=== PATIENT | female | born 1955 | race Caucasian/White ===

== ENCOUNTER 2022-09-21 21:53 | Emergency (ER) | payer MEDICARE, OTHER ==
[2022-09-21 22:09] VITALS: TEMP 98.8
[2022-09-21] MEDS ORDERED: solu-MEDROL 125 MG, Sterile H2O 10 ml 2 ML IV ONE ×2 (22:19)
[2022-09-21] MEDS ORDERED: DUONEB 0.5-3 MG/3 ml Neb IH ONE ×2 (22:19→22:35)
[2022-09-21] MEDS ORDERED: GI COCKTAIL 45 ML (Maalox/Lidocaine) PO ONE (22:20)
[2022-09-21] MEDS ORDERED: BABY ASPIRIN 81 MG CHEW PO ONE (22:20)
[2022-09-21 22:24] LABS: Absolute Neutrophil Ct (ANC) 7.08 x10^3/uL (1.4-6.9); BASOPHIL % 0.4 % (0.0-0.4); Basophil (Absolute #) 0.04 x10^3/uL (0-0.4); Eosinophil % 0.6 % (0.00-5.0); Eosinophil (Absolute #) 0.06 x10^3/uL (0-0.5); Hematocrit 45.1 % (35-47); Hemoglobin 14.5 g/dL (12.0-16.0); IMMATURE GRAN # 0.02 x10^3u/L (0.00-0.03); IMMATURE GRAN % 0.2 % (0.00-0.4); Lymphocyte (Absolute #) 1.68 x10^3/uL (1.0-4.6); Lymphocytes % 17.3 % (24.0-44.0); Mean Cell Volume 93.2 fL (78-100); Mean Corpuscular Hgb Concent. 32.2 g/dL (32-36); Monocyte (Absolute #) 0.84 x10^3/uL (0.0-1.3); Monocytes % 8.6 % (0.0-12.0); Neutrophil % 72.9 % (36.0-66.0); Platelet Count 173 x10^3/uL (150-450); Red Blood Count 4.84 x10^6/uL (4.1-5.4); Red Cell Distribution Width 13.2 % (11.5-14.0); White Blood Count 9.7 x10^3/uL (4.0-10.5)
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
[2022-09-21] MEDS ORDERED: Sterile H2O 10 ml IJ ONE (22:29)
[2022-09-21] MEDS ORDERED: solu-MEDROL ONE (22:29)
[2022-09-21] MEDS ORDERED: BABY ASPIRIN 81 MG CHEW ONE (22:29)
[2022-09-21] MEDS ORDERED: XYLOCAINE VISCOUS 2% 15 ML CUP ONE (22:30)
[2022-09-21] MEDS ORDERED: MAALOX ES 30 ML UNIT DOSE ONE (22:30)
[2022-09-21 22:34] LABS: ALBUMIN 4.3 g/dL (3.5-5.0); ANION GAP 10.9 MEQ/L (5-15); BILIRUBIN,TOTAL 0.8 mg/dL (0.2-1.3); Calcium 9.8 mg/dL (8.4-10.2); Creatinine 1 1.05 mg/dL (0.52-1.04); EST GLOMERULAR FILTRATION RATE 55.9 ML/MIN; MAGNESIUM 1.9 mg/dL (1.6-2.3); Potassium 3.8 mmol/L (3.5-5.1); Total Protein 7.6 g/dL (6.3-8.2)
[2022-09-21] MEDS ORDERED: CLONIDINE 0.1 MG TABLET PO ONE (23:56)
[2022-09-22] MEDS ORDERED: CLONIDINE 0.1 MG TABLET ONE ×2 (00:19→00:20)
[2022-09-22 01:25] VITALS: PULSE 94; RESP 16
[2022-09-22 02:08] VITALS: BP 109/71; O2SAT 96
--- NOTE | 2022-09-22 08:49 | XRAY ---
Indication: Short of breath. Comparison: January 16, 2021 Portable chest again hyperinflated and clear with a few tiny left lung calcified granulomas. Heart not enlarged. Bony thorax intact again with osteopenia and mild degenerative changes. Impression: Continued nonacute hyperinflated chest with chronic features.
== END 2022-09-22 02:06 | disposition home or self-care (01) ==
LOC: ED 21:53
DX: J45.901 Unspecified asthma with (acute) exacerbation (principal); I10 Essential (primary) hypertension; R07.9 Chest pain, unspecified; R06.02 Shortness of breath; E78.5 Hyperlipidemia, unspecified; Z79.52 Long term (current) use of systemic steroids; Z79.899 Other long term (current) drug therapy; Z28.310 Unvaccinated for COVID-19; Z72.0 Tobacco use
CPT/HCPCS: 36000; 36415; 71045; 80053; 83735; 83880; 84484; 85025; 93005; 93041; 94640; 96374; 99284; J2930; A9270-GY

== ENCOUNTER 2024-07-07 08:21 | Observation (INO) | payer MEDICARE, OTHER ==
[2024-07-07 08:59] LABS: Absolute Neutrophil Ct (ANC) 2.22 x10^3/uL (1.56-6.13); BASOPHIL % 0.6 % (0.1-1.2); Basophil (Absolute #) 0.03 x10^3/uL (0.01-0.08); Eosinophil % 1.3 % (0.7-5.8); Eosinophil (Absolute #) 0.07 x10^3/uL (0.04-0.36); Hematocrit 46.4 % (34.1-44.9); Hemoglobin 14.8 g/dL (11.2-15.7); IMMATURE GRAN # 0.02 x10^3u/L (0.001-0.031); IMMATURE GRAN % 0.4 % (0.001-0.429); Lymphocyte (Absolute #) 2.44 x10^3/uL (1.18-3.74); Lymphocytes % 45.2 % (19.3-51.7); Mean Cell Volume 92.1 fL (79.4-94.8); Mean Corpuscular Hemoglobin 29.4 pg (25.6-32.2); Mean Corpuscular Hgb Concent. 31.9 g/dL (32.2-35.5); Mean Platelet Volume 11.8 fL (9.4-12.3); Monocyte (Absolute #) 0.62 x10^3/uL (0.24-0.86); Monocytes % 11.5 % (4.7-12.5); Platelet Count 152 x10^3/uL (182-369); Red Blood Count 5.04 x10^6/uL (3.93-5.22); Red Cell Distribution Width 14.2 % (11.7-14.4); White Blood Count 5.4 x10^3/uL (3.98-10.04)
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
[2024-07-07] MEDS ORDERED: APRESOLINE 20 MG/ML INJ ONE ×2 (09:04→10:08)
[2024-07-07] MEDS: APRESOLINE 20 MG/ML INJ IV ONE ×2 (09:04→10:11)
--- NOTE | 2024-07-07 09:11 | XRAY ---
CLINICAL HISTORY: cp COMPARISON: No prior studies available for comparison. TECHNIQUE: X-ray image of the chest obtained in 1 frontal projection. FINDINGS: Pulmonary Parenchyma: Two small nodular calcified opacities in left lower zone. Prominent bilateral parahilar markings. No evidence of consolidation, collapse. No evidence of pleural effusion or pleural thickening. Heart and Mediastinum: Heart size and shape are normal. No mediastinal widening or masses. No hilar or mediastinal lymphadenopathy. Bony Thorax: Spondylotic changes in thoracic spine. Bony thorax appears intact without fractures or deformities. Soft Tissues: Soft tissues overlying the chest wall are unremarkable. IMPRESSION: 1. Two small nodular calcified opacities in left lower zone likely healed granulomas. 2. Prominent bilateral parahilar markings possibly bronchitis vs congestion. Clinical and lab correlation is advised Electronically Signed by: Santiago Aparicio MD. (07/07/2024 09:08:24 EDT)
[2024-07-07 09:25] LABS: ALBUMIN 4.2 g/dL (3.5-5.0); ANION GAP 12.6 MEQ/L (5-15); BILIRUBIN,TOTAL 0.8 mg/dL (0.2-1.3); Calcium 10.4 mg/dL (8.4-10.2); Creatinine 1 1.05 mg/dL (0.52-1.04); EST GLOMERULAR FILTRATION RATE 58.2 ML/MIN; Potassium 4.2 mmol/L (3.5-5.1); Total Protein 6.6 g/dL (6.3-8.2)
--- NOTE | 2024-07-07 13:07 | PCM.HP ---
<DARIN WEISS - Last Filed: 07/07/24 13:02> History of Present Illness - Chief Complaint Chief Complaint: Chest pain, hypertensive crisis Date: 07/07/24 History of Present Illness: is a 69 year old female with past medical history of hypertension, hyperlipidemia, COPD, asthma, and emphysema, who presented to the emergency department on 07/07/2024 with complaints of left-sided chest pain. She reported the pain initially began the previous evening as mild discomfort but persisted into the following day, increasing in intensity and rated as 7/10 on the numerical pain scale. The pain was described as sharp in nature, radiating to th e back, with no associated symptoms such as shortness of breath, nausea, or diaphoresis. Interestingly, she noted some relief of symptoms with walking and denied any known aggravating factors. On arrival, she was found to be hypertensive with a blood pressure of 205/98 mmHg. The patient reports that her typical home blood pressures are in the range of 120s/70s. She also noted a recent change in her antihypertensive regimen, with discontinuation of lisinopril/hydrochlorothiazide and initiation of spironolactone. Her initial workup included a CXR demonstrating findings suggestive of pulmonary congestion versus bronchitis. Electrocardiogram (EKG) showed normal sinus rhythm without evidence of acute ischemic changes. Serial troponin levels were within normal limits, effectively lowering suspicion for acute coronary syndrome. However, BNP was elevated at 1170 pg/mL, raising concern for possible volume overload or underlying heart failure exacerbation. Renal function was stable with a creatinine of 1.05 mg/dL, consistent with her known baseline. The patient was administered aspirin and hydralazine in the ED, which resulted in an improvement of blood pressure to 146/65 mmHg. Given her hypertensive urgency and atypical chest pain, she was admitted for ACS rule out and blood pressure stabilization. She was initiated on amlodipine for ongoing blood pressure control during hospitalization. - Review of Systems Constitutional: No Symptoms Eyes: No Symptoms Ears, Nose, & Throat: No Symptoms Respiratory: No Symptoms Cardiac: Chest Pain Abdominal/Gastrointestinal: No Symptoms Genitourinary Symptoms: No Symptoms Musculoskeletal: No Symptoms Skin: No Symptoms Neurological: No Symptoms Psychological: No Symptoms Endocrine: No Symptoms Hematologic/Lymphatic: No Symptoms Immunological/Allergic: No Symptoms Medications & Allergies Home Medications: Home Medication List Albuterol Sulfate [Albuterol Sulfate Hfa] 2 inh IH Q4HPRN PRN 09/21/22 [History Confirmed 07/07/24] Fluticasone/Umeclidin/Vilanter [Trelegy Ellipta 100-62.5-25] 1 each IH DAILY 09/21/22 [History Confirmed 07/07/24] Montelukast Sodium 10 mg [Singulair 10 MG] 10 mg PO HS 07/07/24 [History Confirmed 07/07/24] Oxybutynin Chloride [Oxybutynin Chloride ER] 5 mg PO DAILY 07/07/24 [History Confirmed 07/07/24] Spironolactone 25 mg [Aldactone 25 MG] 25 mg PO DAILY 07/07/24 [History Confirmed 07/07/24] Allergies/Adverse Reactions: Allergies Allergy/AdvReac Type Severity Reaction Status Date / Time erythromycin base Allergy Intermediate Verified 07/07/24 08:45 - Past Medical History Past Medical History: Yes Neurological History: No Pertinent History ENT History: Cataracts Cardiac History: High Cholesterol, Hypertension Respiratory History: Asthma, COPD, Emphysema, Sleep Apnea Endocrine Medical History: Other Musculoskelatal History: Arthritis, Other GI Medical History: No Pertinent History History: No Pertinent History Pyscho-Social History: No Pertinent History Reproductive Disorders: No Pertinent History Comment: Parathyroid dysfunction, arthritis in bilateral knees, hx kidney stones, ganglion cyst left hand removed, right knee injury >20 years ago and menisectomy. - Past Surgical History Past Surgical History: Yes Neuro Surgical History: No Pertinent History Cardiac History: No Pertinent History Respiratory Surgery: No Pertinent History GI Surgical History: No Pertinent History Genitourinary Surgical Hx: Other Musculskeletal Surgical Hx: Orthopedic Surgery Female Surgical History: No Pertinent History Other Surgical History: Kidney stones lithotripsy Significant Family History: heart disease, cancer, diabetes, stroke - Social History Smoking Status: Current every day smoker How long have you smoked: 30 years Exposure to second hand smoke: Yes Alcohol: Occasionally Drug Use: none - Social Determinants of Health Will the patient participate in the screening: Yes Do you worry about a steady place to live?: No Do you have any problems with any of the following?: No known problems In the past 12 months,have you had to go without utilities?: No Have you or anyone in your house had to go without enough: No Transportation Issues: No Has anyone in your support network made you feel unsafe?: No Does the patient want assistance with any of the above?: No - Physical Exam Vital Signs: Vital Signs - 24 hr Temp Pulse Pulse Resp BP BP Pulse Ox 07/07/24 12:07 97.6 F 87 16 146/65 97 07/07/24 11:41 97.6 F 87 16 146/65 97 07/07/24 11:15 186/93 07/07/24 11:00 95 H 21 176/92 100 07/07/24 10:50 93 H 22 163/89 100 07/07/24 10:39 99 07/07/24 10:30 96 H 25 H 191/98 100 07/07/24 10:28 99 H 19 181/102 100 07/07/24 10:15 98 H 35 H 184/110 99 07/07/24 10:00 78 19 213/95 99 07/07/24 09:48 84 27 H 208/115 07/07/24 09:46 149/79 98 07/07/24 09:31 173/90 97 07/07/24 09:30 82 19 218/97 100 07/07/24 09:28 100 07/07/24 09:00 88 23 205/93 100 07/07/24 08:31 69 20 205/98 99 07/07/24 08:25 97.8 F 69 70 19 198/97 99 General Appearance: no apparent distress Neurologic Exam: alert, oriented x 3, cooperative Eye Exam: PERRL/EOMI Ears, Nose, Throat Exam: normal ENT inspection Neck Exam: normal inspection Respiratory Exam: normal breath sounds, lungs clear Cardiovascular Exam: regular rate/rhythm, normal heart sounds Gastrointestinal/Abdomen Exam: soft, normal bowel sounds Pelvic Exam: not done Rectal Exam: deferred Back Exam: normal inspection Extremity Exam: normal inspection Skin Exam: normal color Results - Labs Lab/Micro Results: Lab Results-Last 24 Hours 07/07/24 07/07/24 07/07/24 Range/Units 08:59 08:59 08:59 WBC 5.4 (3.98-10.04) x10^3/uL RBC 5.04 (3.93-5.22) x10^6/uL Hgb 14.8 (11.2-15.7) g/dL Hct 46.4 H (34.1-44.9) % MCV 92.1 (79.4-94.8) fL MCH 29.4 (25.6-32.2) pg MCHC 31.9 L (32.2-35.5) g/dL RDW 14.2 (11.7-14.4) % Plt Count 152 L (182-369) x10^3/uL MPV 11.8 (9.4-12.3) fL Gran % 41.0 (34.0-71.1) % Immature Gran % (Auto) 0.4 (0.001-0.429) % Nucleat RBC Rel Count 0.0 (0.00-0.2) % Eos # (Auto) 0.07 (0.04-0.36) x10^3/uL Immature Gran # (Auto) 0.02 (0.001-0.031) x10^3u/L Absolute Lymphs (auto) 2.44 (1.18-3.74) x10^3/uL Absolute Monos (auto) 0.62 (0.24-0.86) x10^3/uL Absolute Nucleated RBC 0.00 (0.00-0.012) x10^3u/L Lymphocytes % 45.2 (19.3-51.7) % Monocytes % 11.5 (4.7-12.5) % Eosinophils % 1.3 (0.7-5.8) % Basophils % 0.6 (0.1-1.2) % Absolute Granulocytes 2.22 (1.56-6.13) x10^3/uL Basophils # 0.03 (0.01-0.08) x10^3/uL Sodium 141 (135-145) mmol/L Potassium 4.2 (3.5-5.1) mmol/L Chloride 105 (98-107) mmol/L Carbon Dioxide 28 (22-30) mmol/L Anion Gap 12.6 (5-15) MEQ/L BUN 19 H (7-17) mg/dL Creatinine 1.05 H (0.52-1.04) mg/dL Estimated GFR 58.2 ML/MIN Glucose 100 (74-106) mg/dL Calcium 10.4 H (8.4-10.2) mg/dL Total Bilirubin 0.80 (0.2-1.3) mg/dL AST 20 (14-36) U/L ALT 18 (0-35) U/L Alkaline Phosphatase 109 (38-126) U/L Troponin I < 0.012 (0.000-0.033) ng/mL NT-Pro-B Natriuret Pep 1170 (<300) pg/mL Serum Total Protein 6.6 (6.3-8.2) g/dL Albumin 4.2 (3.5-5.0) g/dL / Range/Units 12:03 WBC (3.98-10.04) x10^3/uL RBC (3.93-5.22) x10^6/uL Hgb (11.2-15.7) g/dL Hct (34.1-44.9) % MCV (79.4-94.8) fL MCH (25.6-32.2) pg MCHC (32.2-35.5) g/dL RDW (11.7-14.4) % Plt Count (182-369) x10^3/uL MPV (9.4-12.3) fL Gran % (34.0-71.1) % Immature Gran % (Auto) (0.001-0.429) % Nucleat RBC Rel Count (0.00-0.2) % Eos # (Auto) (0.04-0.36) x10^3/uL Immature Gran # (Auto) (0.001-0.031) x10^3u/L Absolute Lymphs (auto) (1.18-3.74) x10^3/uL Absolute Monos (auto) (0.24-0.86) x10^3/uL Absolute Nucleated RBC (0.00-0.012) x10^3u/L Lymphocytes % (19.3-51.7) % Monocytes % (4.7-12.5) % Eosinophils % (0.7-5.8) % Basophils % (0.1-1.2) % Absolute Granulocytes (1.56-6.13) x10^3/uL Basophils # (0.01-0.08) x10^3/uL Sodium (135-145) mmol/L Potassium (3.5-5.1) mmol/L Chloride (98-107) mmol/L Carbon Dioxide (22-30) mmol/L Anion Gap (5-15) MEQ/L BUN (7-17) mg/dL Creatinine (0.52-1.04) mg/dL Estimated GFR ML/MIN Glucose (74-106) mg/dL Calcium (8.4-10.2) mg/dL Total Bilirubin (0.2-1.3) mg/dL AST (14-36) U/L ALT (0-35) U/L Alkaline Phosphatase (38-126) U/L Troponin I < 0.012 (0.000-0.033) ng/mL NT-Pro-B Natriuret Pep (<300) pg/mL Serum Total Protein (6.3-8.2) g/dL Albumin (3.5-5.0) g/dL - Radiology Impressions Radiology Exams & Impressions: Radiology Procedures Category Date Time Status CHEST 1 VIEW (PORTABLE) Stat Exams 07/07/24 08:40 Completed Assessment/Plan (1) Chest pain, rule out acute myocardial infarction Current Visit: Yes Status: Acute Assessment & Plan: -Monitor on continuous telemetry during admission -Continue low-dose aspirin 81 mg daily for cardiovascular protection -Serial troponins x2 remained within normal limits -EKG without acute ischemic changes - repeat in A.M. Code(s): R07.9 - CHEST PAIN, UNSPECIFIED (2) Hypertensive urgency Current Visit: Yes Status: Acute Assessment & Plan: -Initiated amlodipine 5mg -Administered hydralazine 10 mg IV in ED with improvement of BP to 146/65 mmHg. -Continue spironolactone as previously prescribed. -Monitor BP closely on admission with goal <130/80 mmHg. -Monitor for symptoms of end-organ dysfunction. Code(s): I16.0 - HYPERTENSIVE URGENCY (3) HLD (hyperlipidemia) Current Visit: Yes Status: Acute Assessment & Plan: -continue statin Code(s): E78.5 - HYPERLIPIDEMIA, UNSPECIFIED (4) Elevated brain natriuretic peptide (BNP) level Current Visit: Yes Status: Acute Assessment & Plan: -Monitor oxygenation and respiratory status closely. -Evaluate need for diuretic therapy carefully due to COPD overlap- continue home spironolactone - no edema on exam -Echocardiogram inpatient to evaluate cardiac function. -Monitor for worsening respiratory symptoms or fluid overload. -BNP elevated at 1170 - no history of CHF Code(s): R79.89 - OTHER SPECIFIED ABNORMAL FINDINGS OF BLOOD CHEMISTRY (5) COPD (chronic obstructive pulmonary disease) Current Visit: Yes Status: Acute Assessment & Plan: -Continue maintenance inhalers as per home regimen. -Monitor for signs of COPD exacerbation. -Ensure influenza and pneumococcal vaccines are up to date. -Evaluate for pulmonary rehabilitation referral as appropriate VTE: Lovenox PPI: protonix Dispo: 1-2 days Code status: Full code <DIEGO PINZON - Last Filed: 07/07/24 22:15> History of Present Illness - Chief Complaint History of Present Illness: is a 69 year old female. - Physical Exam Vital Signs: Vital Signs - 24 hr Temp Pulse Pulse Resp BP BP Pulse Ox 07/07/24 19:55 98.7 F 90 16 122/55 97 07/07/24 19:29 97 07/07/24 19:00 82 18 97 07/07/24 16:00 98.9 F 78 18 122/58 95 07/07/24 14:08 91 H 16 98 07/07/24 12:07 97.6 F 87 16 146/65 97 07/07/24 11:41 97.6 F 87 16 146/65 97 07/07/24 11:15 186/93 07/07/24 11:00 95 H 21 176/92 100 07/07/24 10:50 93 H 22 163/89 100 07/07/24 10:39 99 07/07/24 10:30 96 H 25 H 191/98 100 07/07/24 10:28 99 H 19 181/102 100 07/07/24 10:15 98 H 35 H 184/110 99 07/07/24 10:00 78 19 213/95 99 07/07/24 09:48 84 27 H 208/115 07/07/24 09:46 149/79 98 07/07/24 09:31 173/90 97 07/07/24 09:30 82 19 218/97 100 07/07/24 09:28 100 07/07/24 09:00 88 23 205/93 100 07/07/24 08:31 69 20 205/98 99 07/07/24 08:25 97.8 F 69 70 19 198/97 99 Results - Labs Lab/Micro Results: Lab Results-Last 24 Hours 07/07/24 07/07/24 07/07/24 Range/Units 08:59 08:59 08:59 WBC 5.4 (3.98-10.04) x10^3/uL RBC 5.04 (3.93-5.22) x10^6/uL Hgb 14.8 (11.2-15.7) g/dL Hct 46.4 H (34.1-44.9) % MCV 92.1 (79.4-94.8) fL MCH 29.4 (25.6-32.2) pg MCHC 31.9 L (32.2-35.5) g/dL RDW 14.2 (11.7-14.4) % Plt Count 152 L (182-369) x10^3/uL MPV 11.8 (9.4-12.3) fL Gran % 41.0 (34.0-71.1) % Immature Gran % (Auto) 0.4 (0.001-0.429) % Nucleat RBC Rel Count 0.0 (0.00-0.2) % Eos # (Auto) 0.07 (0.04-0.36) x10^3/uL Immature Gran # (Auto) 0.02 (0.001-0.031) x10^3u/L Absolute Lymphs (auto) 2.44 (1.18-3.74) x10^3/uL Absolute Monos (auto) 0.62 (0.24-0.86) x10^3/uL Absolute Nucleated RBC 0.00 (0.00-0.012) x10^3u/L Lymphocytes % 45.2 (19.3-51.7) % Monocytes % 11.5 (4.7-12.5) % Eosinophils % 1.3 (0.7-5.8) % Basophils % 0.6 (0.1-1.2) % Absolute Granulocytes 2.22 (1.56-6.13) x10^3/uL Basophils # 0.03 (0.01-0.08) x10^3/uL Sodium 141 (135-145) mmol/L Potassium 4.2 (3.5-5.1) mmol/L Chloride 105 (98-107) mmol/L Carbon Dioxide 28 (22-30) mmol/L Anion Gap 12.6 (5-15) MEQ/L BUN 19 H (7-17) mg/dL Creatinine 1.05 H (0.52-1.04) mg/dL Estimated GFR 58.2 ML/MIN Glucose 100 (74-106) mg/dL Calcium 10.4 H (8.4-10.2) mg/dL Total Bilirubin 0.80 (0.2-1.3) mg/dL AST 20 (14-36) U/L ALT 18 (0-35) U/L Alkaline Phosphatase 109 (38-126) U/L Troponin I < 0.012 (0.000-0.033) ng/mL NT-Pro-B Natriuret Pep 1170 (<300) pg/mL Serum Total Protein 6.6 (6.3-8.2) g/dL Albumin 4.2 (3.5-5.0) g/dL 07/07/24 07/07/24 Range/Units 12:03 16:15 WBC (3.98-10.04) x10^3/uL RBC (3.93-5.22) x10^6/uL Hgb (11.2-15.7) g/dL Hct (34.1-44.9) % MCV (79.4-94.8) fL MCH (25.6-32.2) pg MCHC (32.2-35.5) g/dL RDW (11.7-14.4) % Plt Count (182-369) x10^3/uL MPV (9.4-12.3) fL Gran % (34.0-71.1) % Immature Gran % (Auto) (0.001-0.429) % Nucleat RBC Rel Count (0.00-0.2) % Eos # (Auto) (0.04-0.36) x10^3/uL Immature Gran # (Auto) (0.001-0.031) x10^3u/L Absolute Lymphs (auto) (1.18-3.74) x10^3/uL Absolute Monos (auto) (0.24-0.86) x10^3/uL Absolute Nucleated RBC (0.00-0.012) x10^3u/L Lymphocytes % (19.3-51.7) % Monocytes % (4.7-12.5) % Eosinophils % (0.7-5.8) % Basophils % (0.1-1.2) % Absolute Granulocytes (1.56-6.13) x10^3/uL Basophils # (0.01-0.08) x10^3/uL Sodium (135-145) mmol/L Potassium (3.5-5.1) mmol/L Chloride (98-107) mmol/L Carbon Dioxide (22-30) mmol/L Anion Gap (5-15) MEQ/L BUN (7-17) mg/dL Creatinine (0.52-1.04) mg/dL Estimated GFR ML/MIN Glucose (74-106) mg/dL Calcium (8.4-10.2) mg/dL Total Bilirubin (0.2-1.3) mg/dL AST (14-36) U/L ALT (0-35) U/L Alkaline Phosphatase (38-126) U/L Troponin I < 0.012 < 0.012 (0.000-0.033) ng/mL NT-Pro-B Natriuret Pep (<300) pg/mL Serum Total Protein (6.3-8.2) g/dL Albumin (3.5-5.0) g/dL - Radiology Impressions Radiology Exams & Impressions: Radiology Procedures Category Date Time Status CHEST 1 VIEW (PORTABLE) Stat Exams 07/07/24 08:40 Completed ECHO W/2D AND DOPPLER [US] Routine Exams 07/07/24 13:13 Taken - Other Procedures and Tests Respiratory Therapy 07/07/24 13:13 EKG REPEAT IN AM 07/07/24 19:00 Respiratory Therapy Assessment DAILY 07/07/24 21:00 BiPap/CPAP ROUTINE BALTAZAR Encounter - BALTAZAR Encounter Attestation BALTAZAR Encounter Attestation: "GrahampersonallyscarrollexNINA Box andhavediscussed pertinent aspects of their care with Darin Weiss and agree with the history, physical exam (any modifications based on my personal exam will be noted below), assessment, and plan as outlined in original note. Please see immediately below for my summary of findings and additional assessment and plan along with any meaningful corrections/explanations to the Subjective/Objective portions of the BALTAZAR note will be noted." My portion of the encounter took place via telemedicine. -Patient presents with chest pain in the context of hypertensive urgency. ACS ruled out. Will add amlodipine to current regimen of spironolactone and have patient follow up with her PCP
[2024-07-07] MEDS ORDERED: Zofran 4 MG/2 ML VIAL IV PRN (13:13)
[2024-07-07] MEDS ORDERED: TYLENOL 325 MG PO PRN (13:13)
[2024-07-07] MEDS ORDERED: DUONEB 0.5-3 MG/3 ml Neb IH PRN (13:13)
[2024-07-07] MEDS ORDERED: VENTOLIN COMMON CANISTER IH PRN (13:25)
[2024-07-07] MEDS ORDERED: MEDICATION INTERVENTION MC SCH (13:30)
[2024-07-07] MEDS: NORVASC 5 MG PO ONE (15:06)
[2024-07-07] MEDS: Ditropan XL 5 MG PO SCH (15:06)
[2024-07-07] MEDS: ENOXAPARIN SODIUM SQ SCH (15:07)
[2024-07-07] MEDS: Aldactone 25 MG PO SCH (15:08)
[2024-07-07] MEDS: Advair Hfa 115/21 Common canister IH SCH (19:25)
[2024-07-07] MEDS: Singulair 10 MG PO SCH (22:51)
[2024-07-08 04:54] LABS: Absolute Neutrophil Ct (ANC) 3.27 x10^3/uL (1.56-6.13); BASOPHIL % 0.7 % (0.1-1.2); Basophil (Absolute #) 0.05 x10^3/uL (0.01-0.08); Eosinophil % 1.3 % (0.7-5.8); Eosinophil (Absolute #) 0.09 x10^3/uL (0.04-0.36); Hematocrit 47.1 % (34.1-44.9); Hemoglobin 15.1 g/dL (11.2-15.7); IMMATURE GRAN # 0.02 x10^3u/L (0.001-0.031); IMMATURE GRAN % 0.3 % (0.001-0.429); Lymphocyte (Absolute #) 2.66 x10^3/uL (1.18-3.74); Lymphocytes % 38.7 % (19.3-51.7); Mean Cell Volume 92.4 fL (79.4-94.8); Mean Corpuscular Hemoglobin 29.6 pg (25.6-32.2); Mean Corpuscular Hgb Concent. 32.1 g/dL (32.2-35.5); Mean Platelet Volume 11.6 fL (9.4-12.3); Monocyte (Absolute #) 0.78 x10^3/uL (0.24-0.86); Monocytes % 11.4 % (4.7-12.5); Neutrophil % 47.6 % (34.0-71.1); Platelet Count 161 x10^3/uL (182-369); Red Cell Distribution Width 14.6 % (11.7-14.4); White Blood Count 6.9 x10^3/uL (3.98-10.04)
[2024-07-08 05:20] LABS: ALBUMIN 4.1 g/dL (3.5-5.0); Calcium 10.3 mg/dL (8.4-10.2); Creatinine 1 1.22 mg/dL (0.52-1.04); EST GLOMERULAR FILTRATION RATE 48.6 ML/MIN
[2024-07-08 05:22] LABS: Potassium 4.4 mmol/L (3.5-5.1)
[2024-07-08 05:33] LABS: ANION GAP 10.4 MEQ/L (5-15)
[2024-07-08] MEDS: NORVASC 5 MG PO SCH (08:45)
[2024-07-08 09:13] VITALS: RESP 18; TEMP 97.1; O2SAT 99
[2024-07-08 09:50] VITALS: BP 154/69; PULSE 75
[2024-07-08] MEDS ORDERED: NON-FORMULARY ITEM (Fluticasone/Umeclidin/Vilanter [Trelegy Ellipta 100-62.5-25] 1 EACH Bl IH SCH (10:00)
--- NOTE | 2024-07-08 10:51 | PCM.DS ---
Discharge Summary Date of Admission: 07/07/24 11:34 Date of Discharge: 07/08/24 Admitting Physician: DIEGO PINZON MD Primary Care Provider: BRUNA DEL RIO Allergies Allergies erythromycin base Allergy (Intermediate, Verified 07/07/24 08:45) Hospital Summary - Hospital Course Hospital Course: Ms. LARIOS is a 69-year-old female with a past medical history of hypertension, hyperlipidemia, chronic obstructive pulmonary disease (COPD), asthma, and emphysema, who was admitted on 07/07/2024 for evaluation and management of hypertensive urgency and atypical chest pain. The patient presented to the emergency department with a one-day history of progressively worsening left- sided chest pain, described as sharp and radiating to the back, without associated symptoms of dyspnea, nausea, or diaphoresis. She noted partial relief with ambulation. At presentation, she was found to be hypertensive with a blood pressure of 205/98 mmHg, markedly elevated from her reported home baseline of 120s/70s. This hypertensive episode was temporally associated with a recent change in her antihypertensive regimen, where lisinopril/hydrochlorothiazide was discontinued, and spironolactone was initiated. Her initial evaluation included a cxr, which demonstrated findings concerning for pulmonary congestion versus bronchitis. Electrocardiograms performed on admission and serially during hospitalization revealed normal sinus rhythm without evidence of acute ischemia. Serial troponin measurements remained within normal limits, ruling out an acute coronary syndrome. Notably, BNP was significantly elevated at 1170, raising concern for possible subclinical volume overload or early heart failure exacerbation, although she denied symptoms of dyspnea or peripheral edema. Renal function was stable initially but showed a mild increase in serum creatinine from a baseline of 1.05 mg/dL to 1.22 mg/dL during hospitalization, likely multifactorial in etiology, including the recent addition of spironolactone and intravascular volume status. Management focused on blood pressure stabilization and continued cardiac monitoring. She responded well to intravenous hydralazine in the emergency department, with subsequent initiation and up-titration of amlodipine to 10 mg daily, which effectively maintained blood pressures within target range throughout admission. In light of her rising creatinine, spironolactone was discontinued. Given the elevated BNP, an echocardiogram was performed to evaluate cardiac function, though diuretic therapy was deferred due to the absence of clinical signs of volume overload and the patient's underlying COPD, which complicates volume management. She remained clinically stable without recurrence of chest pain or new symptoms and demonstrated appropriate response to the antihypertensive adjustments. At the time of discharge, she was advised to maintain a detailed blood pressure log and follow up closely with her primary care provider and cardiology. Laboratory reassessment of renal function was scheduled with her PCP early next week. She was encouraged to maintain adequate oral hydration and to promptly report any new or worsening symptoms. I spent 35 minutes [id number] with the patient on the day of discharge performing discharge exam, discussing hospital stay and discharge instructions with patient and caregivers, preparation of discharge records, prescriptions & referral forms and addressing any questions/concerns the patient had as documented above. - Vitals & Intake/Output Vital Signs: Vital Signs Temperature 97.1 F 07/08/24 08:00 Pulse Rate 75 07/08/24 09:50 Respiratory Rate 18 07/08/24 09:50 Blood Pressure 154/69 07/08/24 09:50 O2 Sat by Pulse Oximetry 99 07/08/24 08:00 Intake & Output: Intake & Output 07/05/24 07/06/24 07/07/24 07/08/24 11:59 11:59 11:59 11:59 Intake Total 1120 Balance 1120 Weight 74.2 kg 79.9 kg - Lab Result Diagrams: 07/08/24 04:52 07/08/24 04:52 Lab Results-Last 24 Hrs: Lab Results-Last 24 Hours 07/07/24 07/07/24 07/08/24 Range/Units 12:03 16:15 04:52 WBC 6.9 (3.98-10.04) x10^3/uL RBC 5.10 (3.93-5.22) x10^6/uL Hgb 15.1 (11.2-15.7) g/dL Hct 47.1 H (34.1-44.9) % MCV 92.4 (79.4-94.8) fL MCH 29.6 (25.6-32.2) pg MCHC 32.1 L (32.2-35.5) g/dL RDW 14.6 H (11.7-14.4) % Plt Count 161 L (182-369) x10^3/uL MPV 11.6 (9.4-12.3) fL Gran % 47.6 (34.0-71.1) % Immature Gran % (Auto) 0.3 (0.001-0.429) % Nucleat RBC Rel Count 0.0 (0.00-0.2) % Eos # (Auto) 0.09 (0.04-0.36) x10^3/uL Immature Gran # (Auto) 0.02 (0.001-0.031) x10^3u/L Absolute Lymphs (auto) 2.66 (1.18-3.74) x10^3/uL Absolute Monos (auto) 0.78 (0.24-0.86) x10^3/uL Absolute Nucleated RBC 0.00 (0.00-0.012) x10^3u/L Lymphocytes % 38.7 (19.3-51.7) % Monocytes % 11.4 (4.7-12.5) % Eosinophils % 1.3 (0.7-5.8) % Basophils % 0.7 (0.1-1.2) % Absolute Granulocytes 3.27 (1.56-6.13) x10^3/uL Basophils # 0.05 (0.01-0.08) x10^3/uL Sodium (135-145) mmol/L Potassium (3.5-5.1) mmol/L Chloride (98-107) mmol/L Carbon Dioxide (22-30) mmol/L Anion Gap (5-15) MEQ/L BUN (7-17) mg/dL Creatinine (0.52-1.04) mg/dL Estimated GFR ML/MIN Glucose (74-106) mg/dL Calcium (8.4-10.2) mg/dL Total Bilirubin (0.2-1.3) mg/dL AST (14-36) U/L ALT (0-35) U/L Alkaline Phosphatase (38-126) U/L Troponin I < 0.012 < 0.012 (0.000-0.033) ng/mL Serum Total Protein (6.3-8.2) g/dL Albumin (3.5-5.0) g/dL 07/08/24 Range/Units 04:52 WBC (3.98-10.04) x10^3/uL RBC (3.93-5.22) x10^6/uL Hgb (11.2-15.7) g/dL Hct (34.1-44.9) % MCV (79.4-94.8) fL MCH (25.6-32.2) pg MCHC (32.2-35.5) g/dL RDW (11.7-14.4) % Plt Count (182-369) x10^3/uL MPV (9.4-12.3) fL Gran % (34.0-71.1) % Immature Gran % (Auto) (0.001-0.429) % Nucleat RBC Rel Count (0.00-0.2) % Eos # (Auto) (0.04-0.36) x10^3/uL Immature Gran # (Auto) (0.001-0.031) x10^3u/L Absolute Lymphs (auto) (1.18-3.74) x10^3/uL Absolute Monos (auto) (0.24-0.86) x10^3/uL Absolute Nucleated RBC (0.00-0.012) x10^3u/L Lymphocytes % (19.3-51.7) % Monocytes % (4.7-12.5) % Eosinophils % (0.7-5.8) % Basophils % (0.1-1.2) % Absolute Granulocytes (1.56-6.13) x10^3/uL Basophils # (0.01-0.08) x10^3/uL Sodium 139 (135-145) mmol/L Potassium 4.4 (3.5-5.1) mmol/L Chloride 105 (98-107) mmol/L Carbon Dioxide 28 (22-30) mmol/L Anion Gap 10.4 (5-15) MEQ/L BUN 25 H (7-17) mg/dL Creatinine 1.22 H (0.52-1.04) mg/dL Estimated GFR 48.6 ML/MIN Glucose 105 (74-106) mg/dL Calcium 10.3 H (8.4-10.2) mg/dL Total Bilirubin 1.00 (0.2-1.3) mg/dL AST 23 (14-36) U/L ALT 18 (0-35) U/L Alkaline Phosphatase 107 (38-126) U/L Troponin I (0.000-0.033) ng/mL Serum Total Protein 7.0 (6.3-8.2) g/dL Albumin 4.1 (3.5-5.0) g/dL - Radiology Exams Ordered Rad Exams-Entire Visit: Radiology Procedures Category Date Time Status CHEST 1 VIEW (PORTABLE) Stat Exams 07/07/24 08:40 Completed ECHO W/2D AND DOPPLER [US] Routine Exams 07/07/24 13:13 Taken - Procedures and Test Procedures and Tests throughout Hospitalization: Therapy Orders & Screens 07/07/24 13:05 Smoking Cessation Education ONCE Comment: Diagnosis: Chest pain, hypertensive crisis Smoking Status: Current every day smoker How long have you smoked: 30 years Have you smoked in the past 12 months: Yes Approximately how many cigarettes per day: 1 PPD Do you dip or chew tobacco: No 07/07/24 13:13 EKG REPEAT IN AM Comment: Diagnosis: Chest pain, hypertensive crisis Respiratory Therapy Consult ONCE Comment: Reason For Exam: Diagnosis: Chest pain, hypertensive crisis 07/07/24 19:00 Respiratory Therapy Assessment DAILY Comment: Diagnosis: Chest pain, hypertensive crisis 07/07/24 21:00 BiPap/CPAP ROUTINE Comment: OUR CPAP PER HOME SETTINGS Diagnosis: Chest pain, hypertensive crisis Discharge Exam General Appearance: no apparent distress Neurologic Exam: alert, oriented x 3, cooperative Eye Exam: PERRL Ears, Nose, Throat Exam: normal ENT inspection Neck Exam: normal inspection Respiratory Exam: normal breath sounds, lungs clear Cardiovascular Exam: regular rate/rhythm, normal heart sounds Gastrointestinal/Abdomen Exam: normal bowel sounds Pelvic Exam: deferred Rectal Exam: deferred Back Exam: normal inspection Extremity Exam: normal inspection Skin Exam: normal color Final Diagnosis/Problem List - Final Discharge Diagnosis/Problem (1) Chest pain, rule out acute myocardial infarction Current Visit: Yes Status: Acute Assessment & Plan: ACS ruled out with serial negative troponins and unremarkable EKGs. Continue aspirin 81 mg daily for cardiovascular protection. Outpatient cardiology follow-up scheduled. Code(s): R07.9 - CHEST PAIN, UNSPECIFIED (2) Hypertensive urgency Current Visit: Yes Status: Acute Assessment & Plan: nitiated and titrated amlodipine to 10 mg daily for BP control. Discontinued spironolactone due to rising creatinine. Advised to maintain BP log and follow up with cardiology for regimen adjustment. Target BP <130/80 mmHg. Code(s): I16.0 - HYPERTENSIVE URGENCY (3) HLD (hyperlipidemia) Current Visit: Yes Status: Acute Assessment & Plan: Continue home statin therapy without changes. Code(s): E78.5 - HYPERLIPIDEMIA, UNSPECIFIED (4) Elevated brain natriuretic peptide (BNP) level Current Visit: Yes Status: Acute Assessment & Plan: Echocardiogram performed to assess cardiac function. No diuretics initiated; monitor clinically for signs of fluid overload. Emphasis on maintaining euvolemia and close follow-up. Code(s): R79.89 - OTHER SPECIFIED ABNORMAL FINDINGS OF BLOOD CHEMISTRY (5) COPD (chronic obstructive pulmonary disease) Current Visit: Yes Status: Acute Assessment & Plan: Continue home maintenance inhaler regimen. - Discharge Discharge Date: 07/08/24 Disposition: Home, Self-Care Condition: Stable Prescriptions: New Amlodipine Besylate 10 mg PO DAILY 30 Days #30 tablet Aspirin EC 81 mg [Ecotrin 81 mg] 81 mg PO DAILY 30 Days #30 tablet Continue Fluticasone/Umeclidin/Vilanter [Trelegy Ellipta 100-62.5-25] 1 each IH DAILY Albuterol Sulfate [Albuterol Sulfate Hfa] 2 inh IH Q4HPRN PRN PRN Reason: Shortness Of Breath/Wheezing Oxybutynin Chloride [Oxybutynin Chloride ER] 5 mg PO DAILY Montelukast Sodium 10 mg [Singulair 10 MG] 10 mg PO HS Discontinued Spironolactone 25 mg [Aldactone 25 MG] 25 mg PO DAILY Follow up with: BRUNA DEL RIO MD [Primary Care Provider, INTERNAL MEDICINE] - 07/11/24 2:15 pm Referral Note: CMP needed to check renal function Rony Navarro MD [CONSULTING PHYSICIAN, CARDIOLOGY] - 07/22/24 10:15 am
== END 2024-07-08 12:55 | disposition home or self-care (01) ==
LOC: ED 08:21 → MED SURG 11:34
PROVIDERS: ADMIT Internal Medicine; ATTEND Internal Medicine
DX: R07.9 Chest pain, unspecified (principal); I16.0 Hypertensive urgency; E78.5 Hyperlipidemia, unspecified; R79.89 Other specified abnormal findings of blood chemistry; J44.9 Chronic obstructive pulmonary disease, unspecified; F17.200 Nicotine dependence, unspecified, uncomplicated; Z79.899 Other long term (current) drug therapy
CPT/HCPCS: 36415; 71045; 80053; 83880; 84484; 85025; 93005; 93041; 93268; 93306; 94640; 94660; 94760; 96374; 99285; J0360; J1650; A9270-GY; G0378